=== PATIENT | female | born 1995 | race Two or more races ===

== ENCOUNTER 2017-06-06 14:27 | Emergency (ER) | payer OTHER ==
[~2017-06-06] VITALS: Ht 172.7 cm; Wt 110.1 kg
[2017-06-06] MEDS ORDERED: PAXI10TA12 PO (14:47)
[2017-06-06] MEDS ORDERED: JUNETAB2 PO (14:47)
[2017-06-06] MEDS ORDERED: PROT1TAB2 PO (14:47)
[2017-06-06] MEDS ORDERED: RANI300T PO (14:47)
[2017-06-06] MEDS ORDERED: BUPR10TASR PO (14:47)
[2017-06-06] MEDS ORDERED: SYNT100T PO (14:47)
--- NOTE | 2017-06-06 16:53 | REP ---
Pelvic ultrasound including transabdominal, endovaginal and Doppler ultrasound assessment: The uterus is anteverted and normal size measuring 7. 4 x 3.7 x 5.1 cm. The endometrium is not thickened measuring 10.4 mm. There is a right ovarian complex 3.1 cm mass. Including this mass. The right ovary is upper normal size measuring 4.8 x 3.8 x 3.1 cm. There is a left ovarian 1.9 cm follicle. Including the follicle the left ovary is normal size measuring 3.0 x 2.3 x 2.4 cm. There is vascular flow in both ovaries with the Doppler resistive index of the intraparenchymal arteries on the right measuring 0.52 and on the left 0.45. There is a large volume of free fluid in the right adnexa extending anterior to the uterus. Balloon Impression: 3.1 cm complex right adnexal mass. Large volume of free fluid in the right adnexa extending anterior to the uterus. 1.9 cm left ovarian follicle. There is vascular flow in both ovaries. Signed by Bobby Yoder MD 06/06/2017 04:43 P
[2017-06-06] MEDS ORDERED: IBUP-1022 PO (17:32)
[2017-06-06 17:36] VITALS: BP 139/82
== END 2017-06-06 18:02 | disposition home or self-care (01) ==
LOC: M ED 14:27
DX: R19.09 Other intra-abdominal and pelvic swelling, mass and lump (principal)

== ENCOUNTER → 2017-07-28 | Outpatient (REF) | payer OTHER ==
[~2017-07-28] MED LIST: BUPR10TASR PO; IBUP-1022 PO; JUNETAB2 PO; PAXI10TA12 PO; PROT1TAB2 PO; RANI300T PO; SYNT100T PO
== END ==
LOC: M SFHCLERA 20:47
PROVIDERS: ATTEND Physician Assistant
DX: R50.9 Fever, unspecified (principal); R11.0 Nausea

== ENCOUNTER 2018-08-05 21:10 | Emergency (ER) | payer OTHER ==
[2018-08-05] MEDS: ONDANSETRON 4 MG ORAL DISINTEGRATING TAB (Q0162 PER 1MG) PO ×3 (22:00→22:52)
[2018-08-05 22:05] LABS: INFLUENZA A AMPLIFICATION NEGATIVE (NEGATIVE); INFLUENZA B AMPLIFICATION NEGATIVE (NEGATIVE)
== END 2018-08-05 22:53 | disposition home or self-care (01) ==
LOC: M ED 21:10
DX: K52.9 Noninfective gastroenteritis and colitis, unspecified (principal); K21.9 Gastro-esophageal reflux disease without esophagitis; E06.3 Autoimmune thyroiditis
CPT/HCPCS: Q0162

== ENCOUNTER → 2018-09-03 | Outpatient (REF) | payer OTHER | LOC: M SFHCLERA 15:11 | DX: J02.9 Acute pharyngitis, unspecified (principal) ==